=== PATIENT | male | born 1955 | race Caucasian/White ===

== ENCOUNTER 2018-06-13 13:31 | Outpatient (CLI) | payer OTHER ==
[~2018-06-13 13:31] MED LIST: ATRIPLA TABLET1 EACH PO; AVALIDE 300-121 EACH PO; CLARITIN10 M1 PO; CLONAZEPAM2 MG PO; LIPITOR40 MG PO; PERCOCET 5-3251 EACH PO; RECTICARE30 GM TOP; SINGULAIR10 MG PO; TOPROL XL25 M1 PO
== END 2018-06-13 13:41 | disposition home or self-care (01) ==
LOC: RAD 13:31
DX: M16.11 Unilateral primary osteoarthritis, right hip (principal); M25.521 Pain in right elbow

== ENCOUNTER 2021-01-21 08:00 | Outpatient (CLI) | payer OTHER | END 2021-01-21 08:30 | disposition home or self-care (01) | LOC: PPH VACUNA 08:00 | DX: Z23 Encounter for immunization (principal) ==

== ENCOUNTER 2021-03-03 13:58 | Outpatient (CLI) | payer OTHER | END 2021-03-03 14:03 | disposition home or self-care (01) | LOC: NUCLEAR 13:58 | PROVIDERS: ATTEND Family Medicine | DX: M81.0 Age-related osteoporosis without current pathological fracture (principal) ==

== ENCOUNTER 2021-05-13 08:04 | Outpatient (CLI) | payer OTHER | END 2021-05-13 08:18 | disposition home or self-care (01) | LOC: LAB 08:04 | DX: Z20.822 Contact with and (suspected) exposure to COVID-19 (principal) ==

== ENCOUNTER 2021-05-20 13:01 | Outpatient (CLI) | payer OTHER | END 2021-05-20 13:56 | disposition home or self-care (01) | LOC: LAB 13:01 | DX: Z20.822 Contact with and (suspected) exposure to COVID-19 (principal) ==

== ENCOUNTER 2021-08-30 09:00 | Outpatient (CLI) | payer OTHER | END 2021-08-30 09:15 | disposition home or self-care (01) | LOC: PPH VACUNA 09:00 | PROVIDERS: ATTEND Emergency Medicine Pediatric Emergency Medicine | DX: Z23 Encounter for immunization (principal) ==

== ENCOUNTER 2022-05-11 11:38 | Outpatient (CLI) | payer OTHER | END 2022-05-11 12:28 | disposition home or self-care (01) | LOC: LAB 11:38 | DX: M79.81 Nontraumatic hematoma of soft tissue (principal); K28.7 Chronic gastrojejunal ulcer without hemorrhage or perforation; C80.1 Malignant (primary) neoplasm, unspecified ==

== ENCOUNTER → 2022-05-11 | Outpatient (CLI) | payer OTHER | END | disposition home or self-care (01) | LOC: RAD 04-01 10:00 → LAB 11:34 | DX: M79.81 Nontraumatic hematoma of soft tissue (principal); K28.7 Chronic gastrojejunal ulcer without hemorrhage or perforation; C80.1 Malignant (primary) neoplasm, unspecified ==

== ENCOUNTER 2022-06-24 08:51 | Outpatient (CLI) | payer OTHER | END 2022-06-24 08:52 | disposition home or self-care (01) | LOC: LAB 08:51 | DX: R59.9 Enlarged lymph nodes, unspecified (principal) ==

== ENCOUNTER 2022-08-22 07:22 | Day surgery (SDC) | payer OTHER ==
[~2022-08-22] VITALS: Ht 167.6 cm; Wt 79.8 kg
[~2022-08-22 07:22] MED LIST changes: +ADCIRCA20 MG PO; +BIKTARVY 50-201 EACH PO; +FOLIC PO; +LOMITIL PO
[2022-08-22] MEDS ORDERED: RECTICARE30 GM TOP (09:47)
[2022-08-22] MEDS ORDERED: PERCOCET 5-3251 EACH PO (09:48)
== END 2022-08-22 14:30 | disposition home or self-care (01) ==
LOC: CIR.AMB 07:22
PROVIDERS: ATTEND Surgery
DX: D01.3 Carcinoma in situ of anus and anal canal (principal); R19.4 Change in bowel habit; K62.0 Anal polyp; Z20.822 Contact with and (suspected) exposure to COVID-19; I10 Essential (primary) hypertension

== ENCOUNTER 2023-03-20 10:20 | Outpatient (CLI) | payer OTHER | END 2023-03-20 10:23 | disposition home or self-care (01) | LOC: SONOGRAMA 10:20 | DX: K57.10 Diverticulosis of small intestine without perforation or abscess without bleeding (principal); Z88.1 Allergy status to other antibiotic agents ==

== ENCOUNTER 2023-03-22 09:58 | Outpatient (CLI) | payer OTHER | END 2023-03-22 10:43 | disposition home or self-care (01) | LOC: TOM 09:58 | DX: N20.0 Calculus of kidney (principal); Z88.1 Allergy status to other antibiotic agents ==

== ENCOUNTER 2023-04-18 14:37 | Outpatient (CLI) | payer OTHER | END 2023-04-18 14:42 | disposition home or self-care (01) | LOC: RAD 14:37 | PROVIDERS: ATTEND Internal Medicine Rheumatology | DX: M17.0 Bilateral primary osteoarthritis of knee (principal) ==

== ENCOUNTER 2023-08-22 08:22 | Outpatient (CLI) | payer OTHER ==
[2023-08-22 11:34] LABS: PH,URINE 6.5 (5.0-8.0); URINE APPEARANCE Clear; URINE BILIRRUBIN Negative (NEGATIVE); URINE BLOOD Negative; URINE COLOR Yellow; URINE GLUCOSE Negative (NEGATIVE); URINE LEUKOCYTE Negative; URINE NITRATE Negative; URINE PROTEIN Negative (NEGATIVE); URINE UROBILINOGEN 0.2 E.U./dl
[2023-08-22 11:35] LABS: URINE BACTERIA 6.2 uL (0.0-1933); URINE RBC 2.2 uL (0.0-20.8)
[2023-08-22 11:36] LABS: HEMATOCRIT 40.8 % (39.0-48.0); HEMOGLOBIN 14.5 g/dL (13-16.00); MEAN CELL VOLUME 92.1 fL (80.0-100.00); MEAN CORPUSCULAR HEMOGLOBIN 32.7 pg (27.00-32.0); MEAN CORPUSCULAR HGB CONC 35.5 g/dl (32.0-36.0); PLATELET COUNT 227 K/uL (150-450); RED BLOOD COUNT 4.43 M/uL (4.00-6.00); RED CELL DISTRIBUTION WIDTH 12.9 % (11.5-14.5)
[2023-08-22 12:03] LABS: URINE EPITHELIAL CELLS 0.9 uL (0.0-38.8); URINE WBC 0.3 uL (0.0-23.2)
[2023-08-22 12:16] LABS: ALBUMIN 3.9 gm/dL (3.4-5.0); BILIRUBIN TOTAL 0.49 mg/dL (0.3-1.2); CALCIUM 9.1 mg/dL (8.5-10.1); CHOL HDL RATIO 3.4 (0-5.0); CREATININE SERUM 1.31 mg/dL (0.70-1.30); GFR 54.41; GLOBULINA 3.5 G/DL (2.4-3.5); POTASSIUM 3.96 mEq/L (3.5-5.1); PROSTATIC SPECIFIC ANTIGEN 1.31 NG/ML (0.010-4.00); TOTAL PROTEIN 7.4 gm/dL (6.4-8.2)
[2023-08-23 09:07] LABS: HEPATITIS A ANTIBODY IGG Positive (Negative); HEPATITIS B SURFACE ANTIBODY Reactive (.); HEPATITIS C VIRUS ANTIBODY Non Reactive (Non Reactive)
[2023-08-23 21:06] LABS: chla t Negative (Negative); neiss Negative (Negative)
== END 2023-08-22 08:24 | disposition home or self-care (01) ==
LOC: LAB 08:22
DX: E78.2 Mixed hyperlipidemia (principal); A64 Unspecified sexually transmitted disease; Z11.3 Encounter for screening for infections with a predominantly sexual mode of transmission; R16.0 Hepatomegaly, not elsewhere classified; Z11.59 Encounter for screening for other viral diseases; E11.8 Type 2 diabetes mellitus with unspecified complications; A56.01 Chlamydial cystitis and urethritis; A54.01 Gonococcal cystitis and urethritis, unspecified; A51.5 Early syphilis, latent; E03.8 Other specified hypothyroidism; E55.9 Vitamin D deficiency, unspecified; N41.8 Other inflammatory diseases of prostate; E11.65 Type 2 diabetes mellitus with hyperglycemia; Z11.4 Encounter for screening for human immunodeficiency virus [HIV]

== ENCOUNTER 2023-12-28 08:48 | Outpatient (CLI) | payer OTHER | END 2023-12-28 08:52 | disposition home or self-care (01) | LOC: TOM 08:48 | PROVIDERS: ATTEND Internal Medicine Hematology & Oncology | DX: R59.9 Enlarged lymph nodes, unspecified (principal) | CPT/HCPCS: 71260; 74177; Q9965 ==

== ENCOUNTER → 2024-07-03 14:45 | Outpatient (CLI) | payer OTHER ==
[2024-07-03 10:55] LABS: URINE APPEARANCE Clear; URINE BILIRRUBIN Negative (NEGATIVE); URINE BLOOD Negative; URINE COLOR Yellow; URINE GLUCOSE Negative (NEGATIVE); URINE KETONE Negative (NEGATIVE); URINE LEUKOCYTE Negative; URINE NITRATE Negative; URINE PROTEIN Negative (NEGATIVE); URINE UROBILINOGEN 0.2 E.U./dl
[2024-07-03 10:59] LABS: URINE RBC 4.8 uL (0.0-20.8)
[2024-07-03 11:17] LABS: HEMATOCRIT 43.8 % (39.0-48.0); HEMOGLOBIN 15.5 g/dL (13-16.00); MEAN CELL VOLUME 92.2 fL (80.0-100.00); MEAN CORPUSCULAR HEMOGLOBIN 32.6 pg (27.00-32.0); MEAN CORPUSCULAR HGB CONC 35.4 g/dl (32.0-36.0); PLATELET COUNT 274 K/uL (150-450); RED BLOOD COUNT 4.74 M/uL (4.00-6.00); RED CELL DISTRIBUTION WIDTH 12.8 % (11.5-14.5)
[2024-07-03 11:22] LABS: URINE BACTERIA 3.6 uL (0.0-1933); URINE CAST 0.14 uL (0.0-1.40); URINE EPITHELIAL CELLS 1.1 uL (0.0-38.8); URINE WBC 1.2 uL (0.0-23.2)
[2024-07-03 11:57] LABS: ALBUMIN 4.1 gm/dL (3.4-5.0); BILIRUBIN TOTAL 0.75 mg/dL (0.3-1.2); CALCIUM 9.4 mg/dL (8.5-10.1); CREATININE SERUM 1.36 mg/dL (0.70-1.30); GFR 51.96; GLOBULINA 3.4 G/DL (2.4-3.5); POTASSIUM 3.8 mEq/L (3.5-5.1); PROSTATIC SPECIFIC ANTIGEN 1.11 NG/ML (0.010-4.00); TOTAL PROTEIN 7.5 gm/dL (6.4-8.2); TSH 0.939 uIU/mL (0.358-3.74)
== END | disposition home or self-care (01) ==
LOC: LAB 08:37
PROVIDERS: ATTEND Internal Medicine Gastroenterology
DX: K58.9 Irritable bowel syndrome, unspecified (principal); R10.32 Left lower quadrant pain

== ENCOUNTER 2024-07-04 14:27 | Outpatient (CLI) | payer OTHER | END 2024-07-04 14:29 | disposition home or self-care (01) | LOC: TOM 14:27 | PROVIDERS: ATTEND Internal Medicine Gastroenterology | DX: K58.9 Irritable bowel syndrome, unspecified (principal); R10.32 Left lower quadrant pain | CPT/HCPCS: 74177; Q9965 ==

== ENCOUNTER 2025-05-01 10:39 | Outpatient (CLI) | payer OTHER | END 2025-05-01 10:49 | disposition home or self-care (01) | LOC: SONOGRAMA 10:39 | DX: K57.10 Diverticulosis of small intestine without perforation or abscess without bleeding (principal) ==

== ENCOUNTER 2025-05-02 14:22 | Outpatient (CLI) | payer OTHER ==
[2025-05-02 15:25] LABS: CREATININE SERUM 1.35 mg/dL (0.70-1.30)
== END 2025-05-02 14:23 | disposition home or self-care (01) ==
LOC: LAB 14:22
DX: R10.30 Lower abdominal pain, unspecified (principal)

== ENCOUNTER 2025-05-05 14:36 | Outpatient (CLI) | payer OTHER | END 2025-05-05 14:43 | disposition home or self-care (01) | LOC: TOM 14:36 | DX: K57.10 Diverticulosis of small intestine without perforation or abscess without bleeding (principal) | CPT/HCPCS: 74177; Q9965 ==